=== PATIENT | female | born 1995 | race Caucasian/White ===

== ENCOUNTER 2019-07-19 07:08 | Outpatient (CLI) | payer OTHER, SELFPAY ==
[2019-07-19 10:14] VITALS: BP 146/79; PULSE 89; RESP 18; TEMP 36.5; O2SAT 98; BMI 32.5
[2019-07-19 10:20] VITALS: BP 149/79; PULSE 89; RESP 18; TEMP 36.5
== END 2019-07-19 07:09 | disposition home or self-care (01) ==
LOC: GILAB 07:16
PROVIDERS: Family Provider Nurse Practitioner Family; Visit Provider Family Medicine
DX: Z34.83 Encounter for supervision of other normal pregnancy, third trimester (principal); Z3A.28 28 weeks gestation of pregnancy; Z31.82 Encounter for Rh incompatibility status; Z67.91 Unspecified blood type, Rh negative
CPT/HCPCS: 86850; 86900; 90384; 96372

== ENCOUNTER → 2019-07-30 14:46 | Outpatient (BNVA) | payer OTHER, SELFPAY | PROVIDERS: Family Provider Nurse Practitioner Family; Visit Provider Internal Medicine Rheumatology | DX: M45.9 Ankylosing spondylitis of unspecified sites in spine (principal); G43.909 Migraine, unspecified, not intractable, without status migrainosus; F32.9 Major depressive disorder, single episode, unspecified | CPT/HCPCS: 99214 ==

== ENCOUNTER 2019-09-22 20:30 | Inpatient (IN) | payer OTHER, SELFPAY ==
[2019-09-22] VITALS (62 sets, daily range): BP systolic 0–171; BP diastolic 0–95; PULSE 81–229; RESP 18; TEMP 36.8–36.9; O2SAT 93–100; BMI 34.7
--- NOTE | 2019-09-22 19:17 | US_ITS ---
WS: [id number] ULTRASOUND OB LIMITED TECHNIQUE: Limited ultrasound examination of the fetus. CLINICAL INFORMATION: decreased movement COMPARISON: None. FINDINGS: Estimated gestational age 38 weeks 4 days Estimated delivery October 02, 2019 heart rate 136 bpm Biophysical profile 6 out of 8. flexion not visualized at this time. breathin movement: 2 tone: 0 Amniotic fluid: 2 IMPRESSION Biophysical profile 6 out of 8
[2019-09-22] MEDS: sodium chloride 0.9% 1,000 ML 999 ML IV (19:29)
[2019-09-22] MEDS: dextrose 5%-lactated ringers 1,000 ML 125 ML IV (21:01)
[2019-09-22 21:05] LABS: Basophils % 0.2 %; Eosinophils % 0.2 %; Hematocrit 32.7 % (37.0-47.0); Hemoglobin 10.8 g/dL (11.5-15.3); Lymphocytes # 1.2 10^3/uL (0.8-4.8); Lymphocytes % 9.7 %; Mean Corpuscular Hemoglobin 29.2 pg (28.0-34.0); Mean Corpuscular Volume 88.4 fL (81-99); Mean Platelet Volume 11.2 fL (7.4-10.4); Monocytes # 0.6 10^3/uL (0.2-0.9); Neutrophils # 10.6 10^3/uL (1.8-7.7); Nucleated Red Blood Cells % 0 %; Platelet Count 247 10^3/cmm (130-400); Red Cell Distribution Width 14.6 % (12.1-15.1); White Blood Count 12.6 10^3/uL (4.0-10.0)
[2019-09-22] MEDS: lactated ringers 1,000 ML 999 ML IV (21:31)
--- NOTE | 2019-09-22 22:27 | ANES.PREANE2 ---
Pre-Anesthetic Assessment Pre-Anesthetic Assessment: Height/Weight: Height 1.63 m Weight 91.626 kg Temp Pulse Resp BP Pulse Ox 98.2 F 98 18 146/69 99 09/22/19 18:31 09/22/19 22:24 09/22/19 18:31 09/22/19 22:24 09/22/19 22:26 Preop Diagnosis: IUP Proposed Procedure: Labor epidural Was Beta Terrell taken within 24 hours: N/A Social: Social History: No tobacco Exam: Pre-Anes Outpt Exam: alert, oriented x 3 and clear to auscultation bilaterally Airway: Submandibular: WNL Cervical ROM: WNL MP: 2 Pulmonary: Pulmonary: None reported CV/HEM: CV/HEM: HTN : : None reported Hepatic: Hepatic: None reported GI: GI: GERD Metabolic: Metabolic: None reported Musc/skel: Musc/skel: Lower Back Pain and Scoliosis Comments: ankylosing spondylitis Neuropsych: Neuropsych: Depression Anesthetic Plan: ASA status: 2 Anesthesia: Anesthesia Evaluation and Regional (specify below) Risk of > 500 ml blood loss (7ml/kg in children): No Meds/Allergies Current Medications: Current Medications Generic Name Dose Route Start Last Admin Trade Name Freq PRN Reason Stop Dose Admin Dextrose/Lactated Ringer's 1,000 mls @ 125 m ls/hr 09/22/19 21:00 09/22/19 21:01 Dextrose 5%-Lact ated Ringers IV 125 mls/hr .Q8H BERNARDINO Administration Lactated Ringer's 1,000 mls @ 999 m ls/hr 09/22/19 20:53 09/22/19 21:31 Lactated Ringers IV 999 mls/hr .Q1H1M PRN Administration BLEEDING PFSH Anesthesia PFSH: Medical History (Updated 07/09/19 @ 09:15 by Lady Jordan MD) Ankylosing spondylitis Social History (Updated 07/30/19 @ 15:03 by Sabina Morse LPN) Smoking and tobacco status: never smoked Alcohol intake: current Alcohol intake frequency: holidays/special occasions only Household members: spouse Marital status: Current occupational status: employed and student Current occupation: [employer] History of recent travel: No Female Reproductive History: : 1 Data Anesthesia CBC & Chem 7: 09/22/19 19:00 Other Labs: Laboratory Results - last 48 hr 09/22/19 19:00 WBC 12.6 H RBC 3.70 L Hgb 10.8 L Hct 32.7 L MCV 88.4 MCH 29.2 MCHC 33.0 RDW 14.6 Plt Count 247 MPV 11.2 H Neut % (Auto) 84.0 Lymph % (Auto) 9.7 [place] % (Auto) 5.0 Eos % (Auto) 0.2 Baso % (Auto) 0.2 Neut # (Auto) 10.6 H Lymph # (Auto) 1.2 [place] # (Auto) 0.6 Eos # (Auto) 0.0 Baso # (Auto) 0.0 Nucleated RBC % (auto) 0 Nucleated RBCs # 0.0 Cardiac Studies: No Data to Display Anesthesia Procedures Epidural: Time Out Performed: Yes Consents Signed: Procedure Consent and NPO Consent Consent: requested by attending/covering physician, from patient, risks and benefits reviewed and patient agrees to proceed Lumbar Level: L2-L3 Epidural position: sitting Epidural procedure: sterile prep of area, 1% lidocaine to numb the area (3 cc skin wheel), 18 g needle (L3-L4), negative for paresthesia passed, neg for paresthesia, test dose given (3 cc ), 1.5% xylocaine 1:200k epi, 0.2% Ropivacaine bolus ml (8 cc), placed PCEA, no systemic response, sterile dressing applied and 0.2% Ropiavacaine @ mls/hr (13 mls/hr 5 cc Q 10 min x 3)
[2019-09-23] VITALS (43 sets, daily range): BP systolic 0–178; BP diastolic 0–94; PULSE 75–138; RESP 16–18; TEMP 36.6–36.9; O2SAT 89–100
[2019-09-23] MEDS: oxytocin 30 UNIT/500 ML BAG 600 UNIT IV (01:40)
--- NOTE | 2019-09-23 02:12 | PM.DELIVERY ---
 Delivery Note: Date of delivery: September 23, 2019 Pre-Delivery Course: The patient is a 24-year-old 1 with gestational hypertension that has not met criteria for treatment at 38 weeks estimated gestational age who presented to the hospital complaining of not having movement for the last 10 to 12 hours. On her initial evaluation, she her heart tones were noted to be hyper reactive. No movement was noted. As result a biophysical profile was performed. She scored a 6 out of 8 but had marginal fluid, she had no breasts and only moved twice. As result, I elected to induce her. Especially in light of her gestational hypertension. She was already having consistent contractions. I performed an amniotomy. She then progressed to complete without difficulty. She did have an occasional decelerations. Delivery: DELIVERY: The patient progressed to complete without difficulty. As the patient was pushing, heart tones would go into the 60s and 70s with frequency. As result, I elected to use a vacuum to assist with the delivery of the infant. I use the vacuum which was a soft cup Kiwi, for 4-5 contractions. I did not have suction in between contractions. I did have 1 pop-off. She delivered a female with a weight of 7 pounds 12 ounces with Apgars of 5, 9. The baby was delivered from the JAYDEN position. The baby's mouth and nose were suctioned at the site of the perineum. The baby was then completely delivered and placed on the mother's abdomen. The cord was then clamped and cut. There was no nuchal cord. There was no meconium. The placenta and 3 vessel cord were delivered intact shortly thereafter. The perineum and vaginal vault were carefully examined. No lacerations were noted. Both the mother and the baby were in stable condition. A&P Assessment and plan (1) Vacuum-assisted vaginal delivery: The patient is doing well. I anticipate that she will have a routine stay. Status: Acute (2) 38 weeks gestation of : Status: Acute (3) Gestational hypertension: Status: Acute Coding Level of Care Code Acute Open Hearth Laborer for Chg Fwd Diagnoses Vacuum-assisted vaginal delivery Z37.9 38 weeks gestation of Z3A.38 Gestational hypertension O13.9
--- NOTE | 2019-09-23 04:52 | PC.NURSE ---
Ambulated to room
--- NOTE | 2019-09-23 04:53 | PC.NURSE ---
Ambulated to nursery to see baby
--- NOTE | 2019-09-23 04:54 | PC.NURSE ---
Back to room.
[2019-09-23] MEDS: HYDROcodone-acetaminophen 5-325 mg Tablet PO (05:18)
[2019-09-23] MEDS: benzocaine-menthol 78 gm Canister 1 SPRAY TOPICAL (05:19)
--- NOTE | 2019-09-23 08:08 | PC.NURSE ---
Patient and significant other in nursery at this time.
--- NOTE | 2019-09-23 08:23 | PC.NURSE ---
0800 Patient in nursery at this time.
[2019-09-23] MEDS: docusate sodium 100 mg Capsule PO ×2 (10:30→18:17)
[2019-09-23] MEDS: prenatal vitamin Capsule 1 CAP PO (10:30)
[2019-09-23 15:03] LABS: Hematocrit 31.3 % (37.0-47.0); Hemoglobin 10.2 g/dL (11.5-15.3); Mean Corpuscular HGB Conc 32.6 g/dL (30.0-36.0); Mean Corpuscular Hemoglobin 28.9 pg (28.0-34.0); Mean Corpuscular Volume 88.7 fL (81-99); Mean Platelet Volume 10.7 fL (7.4-10.4); Platelet Count 226 10^3/cmm (130-400); Red Blood Count 3.53 10^6/uL (4.1-5.3); Red Cell Distribution Width 14.8 % (12.1-15.1); White Blood Count 16.2 10^3/uL (4.0-10.0)
[2019-09-24 04:00] VITALS: BP 123/81; PULSE 90; RESP 16
[2019-09-24] MEDS: docusate sodium 100 mg Capsule PO ×2 (08:49→21:43)
[2019-09-24] MEDS: prenatal vitamin Capsule 1 CAP PO (08:49)
[2019-09-24 10:00] VITALS: BP 131/82; PULSE 76; RESP 18; TEMP 36.5
[2019-09-24 16:30] VITALS: BP 153/89; PULSE 74; RESP 18; TEMP 36.9
[2019-09-24 21:43] VITALS: BP 130/88; PULSE 72; RESP 16; TEMP 36.7
[2019-09-25 06:09] VITALS: BP 129/80; PULSE 81; RESP 16; TEMP 36.8
--- NOTE | 2019-09-25 07:04 | ANE.PACU2 ---
 Inpatient post-anesthesia follow up: Airway intact: Yes Vital signs: Temperature 98.2 F Pulse Rate 81 Respiratory Rate 16 Blood Pressure 129/80 Pulse Oximetry 97 Oxygen Delivery Me thod Room Air Oxygen Flow Rate Fraction of Inspir ed Oxygen Hydration adequate: Yes Nausea and vomiting: No Mental status: Baseline Additional Comments: no LE weaknes, no headaches, no difficulty urinating, no signs of infection at neuraxial site
--- NOTE | 2019-09-25 07:40 | P.PN_ITS ---
SAMPLE BODY BUILDER Subjective Subjective: Interval history: Date of service is September 23. The patient is day #1. She is doing well. Her bleeding has been within normal limits. She is breast-feeding well. Her pain is well controlled. There are no concerns. Labor: Station: +1 Amniotic Membrane Status: Leaking Monitor Mode: External Contraction Pattern: Regular Status: Category ll Vitals/I&O/Wt Last Vital Signs Temp 98.2 F 09/25/19 06:09 Pulse 81 09/25/19 06:09 Resp 16 09/25/19 06:09 BP 129/80 09/25/19 06:09 Pulse Ox 97 09/23/19 22:00 09/24/19 09/25/19 09/25/19 22:59 06:59 14:59 Intake Total 700 / 700 400 / 1100 Balance 700 / 700 400 / 1100 Physical Exam Narrative: EXAM NARRATIVE: The patient is alert. She appears comfortable. Her heart has a regular rate and rhythm with no murmurs appreciated. Lungs are clear to auscultation bilaterally. Her fundus is firm and below the umbilicus. Urinary Catheter Management^: Bonilla: Cath Placed During This Visit: yes Urinary Catheter Date of Insertion: 09/22/19 Urinary Catheter Time of Insertion: 22:30 Data : 09/23/19 14:35 A&P Assessment and plan (1) 38 weeks gestation of : The patient appears to be doing well. Anticipate she will be discharged home on the . Status: Acute (2) Vacuum-assisted vaginal delivery: Status: Acute Attestations Medical Necessity Statement*: Routine care Coding Level of Care Code Acute Tractor Expert for Chg Fwd Diagnoses 38 weeks gestation of Z3A.38 Vacuum-assisted vaginal delivery Z37.9
--- NOTE | 2019-09-25 07:49 | PM.OBGYDC ---
Discharge Providers BOAT OAR MAKER Date of Admission: 09/22/19 20:30 Date of Discharge: 09/25/19 Attending Provider at Admission: Isaiah Norris MD Attending Provider at Discharge: Isaiah Norris MD Primary Care Provider: Isaiah Norris MD Diagnoses at Discharge Discharge Diagnosis (1) 38 weeks gestation of : Status: Acute (2) Vacuum-assisted vaginal delivery: Status: Acute Reason for Visit Reason for Visit: Reason For Visit: lack of movement Hospital Course Hospital Course: The patient presented to the hospital in active labor. Please see the delivery note for details about the hospital stay prior to delivery. , the patient had an unremarkable hospital stay. Her bleeding was within normal limits. Her pain was well controlled. She breast-fed well. There were no complications. Information Peripartum Data: Infant Delivery Method: Vaginal Physical Exam Narrative: EXAM NARRATIVE: The patient is alert. She appears comfortable. Her heart has a regular rate and rhythm with no murmurs appreciated. Lungs are clear to auscultation bilaterally. Her fundus is firm and below the umbilicus. Urinary Catheter Management^: Bonilla: Cath Placed During This Visit: yes Urinary Catheter Date of Insertion: 09/22/19 Urinary Catheter Time of Insertion: 22:30 Discharge Data Data Completed and Pending: Completed Studies During Hospitalization Category Date Time Status US OB biophysical profile without N ST [US OB BP P Ultrasound 09/22/19 19:17 Completed wo NST 41477] Sta t Vitals: Last Vital Signs Temp 98.2 F 09/25/19 06:09 Pulse 81 09/25/19 06:09 Resp 16 09/25/19 06:09 BP 129/80 09/25/19 06:09 Pulse Ox 97 09/23/19 22:00 Discharge Plan Discharge Patient Disposition: Home, Self-Care Condition: Stable Prescriptions: New ibuprofen 800 mg Tablet 800 mg PO TID Qty: 45 RF: 0 Continued Vitamin 27 mg iron- 0.8 mg Tablet 1 tab PO DAILY RF: 0 Discontinued potassium chloride 10 mEq Tablet Extended Release 10 meq PO BID RF: 0 promethazine 25 mg Tablet 25 mg PO Q6H PRN (Reason: Nausea) RF: 0 Discharge Orders: Discharge Order (Routine); Ordered 09/25/19 Ordered By: Isaiah Norris Referrals: Isaiah Norris MD [Primary Care Provider] - 6 Weeks Discharge Diet: Advance as tolerated Discharge Activity: Resume usual activity Discharge Attestations BOAT OAR MAKER Time Spent in Discharge Care*: less than 30 min Coding Level of Care Code Acute Graphics Specialist for Chg Fwd Diagnoses 38 weeks gestation of Z3A.38 Vacuum-assisted vaginal delivery Z37.9
[2019-09-25] MEDS: docusate sodium 100 mg Capsule PO (09:06)
[2019-09-25] MEDS: prenatal vitamin Capsule 1 CAP PO (09:07)
[2019-09-25 10:34] VITALS: BP 139/86; PULSE 82; RESP 16; TEMP 36.6; O2SAT 98
[2019-09-25 11:15] VITALS: BP 139/86; PULSE 82; RESP 16; TEMP 36.6; O2SAT 98
== END 2019-09-25 11:15 | disposition home or self-care (01) | DRG 807 ==
LOC: OPOB 20:36
PROVIDERS: Admitting Provider Family Medicine; Family Provider Nurse Practitioner Family; PCP Family Medicine; Visit Provider Family Medicine
DX: O99.344 Other mental disorders complicating childbirth (principal); Z37.0 Single live birth; O76 Abnormality in fetal heart rate and rhythm complicating labor and delivery; O13.4 Gestational [pregnancy-induced] hypertension without significant proteinuria, complicating childbirth; F32.9 Major depressive disorder, single episode, unspecified; F41.9 Anxiety disorder, unspecified; Z3A.38 38 weeks gestation of pregnancy
CPT/HCPCS: 12345; 36415; 51702; 59025; 59409; 76819; 85025; 85027; 96374; 99211; J2795; J3010; J7030

== ENCOUNTER → 2019-11-19 15:31 | Outpatient (BNVA) | payer OTHER, SELFPAY | PROVIDERS: Family Provider Nurse Practitioner Family; PCP Family Medicine; Visit Provider Internal Medicine Rheumatology | DX: M47.899 Other spondylosis, site unspecified (principal); Z79.899 Other long term (current) drug therapy; F32.9 Major depressive disorder, single episode, unspecified; G43.909 Migraine, unspecified, not intractable, without status migrainosus | CPT/HCPCS: 99214 ==

== ENCOUNTER → 2020-06-24 14:06 | Outpatient (BNVA) | payer OTHER, SELFPAY | PROVIDERS: Family Provider Nurse Practitioner Family; PCP Family Medicine; Visit Provider Internal Medicine Rheumatology | DX: M45.9 Ankylosing spondylitis of unspecified sites in spine (principal); M47.899 Other spondylosis, site unspecified; Z79.899 Other long term (current) drug therapy | CPT/HCPCS: 99214 ==

== ENCOUNTER → 2020-10-26 12:54 | Outpatient (BNVA) | payer OTHER, SELFPAY | PROVIDERS: Family Provider Nurse Practitioner Family; PCP Family Medicine; Visit Provider Internal Medicine Rheumatology | DX: M45.9 Ankylosing spondylitis of unspecified sites in spine (principal); M47.899 Other spondylosis, site unspecified; Z79.899 Other long term (current) drug therapy | CPT/HCPCS: 99214 ==

== ENCOUNTER → 2021-04-05 13:54 | Outpatient (BNVA) | payer OTHER, SELFPAY | PROVIDERS: Family Provider Nurse Practitioner Family; PCP Family Medicine; Visit Provider Internal Medicine Rheumatology | DX: M45.9 Ankylosing spondylitis of unspecified sites in spine (principal); M47.899 Other spondylosis, site unspecified; Z79.899 Other long term (current) drug therapy; G43.009 Migraine without aura, not intractable, without status migrainosus; F32.A Depression, unspecified; Z71.89 Other specified counseling | CPT/HCPCS: 99214 ==

== ENCOUNTER 2022-05-14 07:32 | Emergency (ER) | payer OTHER, SELFPAY ==
[2022-05-14 07:40] VITALS: BP 135/82; PULSE 91; RESP 16; TEMP 36.8; O2SAT 98; BMI 31.2
--- NOTE | 2022-05-14 08:16 | USR_ITS ---
PROCEDURE INFORMATION: Exam: US First Trimester, Transabdominal and US , Transvaginal Exam date and time: 05/14/2022 8:38 AM Age: 27 years old Clinical indication: complicated by abdominal or pelvic pain; Lower; First trimester (<14 weeks 0 days); Gestational age or lmp: 13w5d; ; Additional info: Abdominal pain in LABS AND CLINICAL REPORTS: Last menstrual period start date: 02/07/2022 Gestational age (Established): 13 w 5 d Estimated due date (Established): 11/14/2022 TECHNIQUE: Imaging protocol: Real-time transabdominal obstetrical ultrasound of the maternal pelvis and a first trimester , less than 14 weeks 0 days, with image documentation. Transvaginal imaging was used for better evaluation of the fetus, adnexa, and/or cervix. COMPARISON: US OB BPP wo NST 14135 09/22/2019 8:01 PM FINDINGS: Gestation: Intrauterine gestation is visualized. pole is visualized. Embryonic/ heart rate: 144 bpm BIOMETRY: Gestational age (AUA): 14 w 0 d. Abdominal circumference of 7.44 cm corresponding to an estimated gestational age of 14 weeks and 0 days. Estimated due date (AUA): 11/12/2022 Biparietal diameter (BPD): Biparietal diameter of 2.49 cm corresponding to an estimated gestational age of 14 weeks and 2 days. Head circumference of 9.23 cm corresponding to an estimated gestational age of 14 weeks and 1 day. Femur length (FL): Femur length 1.2 cm corresponding to an estimated gestational age of 13 weeks and 4 days. US/US OB <= 14 weeks fetus [id number] IMPRESSION: Normal intrauterine gestation with an estimated gestational age of 14 weeks and 0 days and heart rate of 144 bpm.
--- NOTE | 2022-05-14 08:25 | ED_ITS ---
HPI - Nausea/Vomiting/Diarrhea General: Chief complaint: Nausea/Vomiting/Diarrhea Stated complaint: 14 weeks , can't keep anything down Time Seen by Provider: 05/14/22 08:03 History of Present Illness: 27-year-old female who is approximate 14 weeks per dates presents emergency department chief complaint of a 3-day history of productive cough followed by nausea and vomiting and generalized abdominal discomfort patient reports other sick ill contacts reports low-grade fever at home reports he is unable to hold anything down at this time despite being provided medications for it by her labor relations or personnel negotiator. Patient reports generalized malaise and fatigue with reduced appetite and oral intake reports generalized abdominal discomfort reports no vaginal bleeding or discharge patient reports no back pain or flank pain patient presents to the ER with her for further assessment and management. Associated nausea: Yes Associated symtoms: Reports fatigue, malaise and nausea; Denies anxiety, change in vision, chest pain, headache(s) or palpitations Review of Systems General: Reports: 10 or more systems reviewed and unremarkable except in HPI and below Const: Reports: fever(s), chills, body aches, change in appetite, fatigue and malaise Eyes: Denies: change in vision or blurry vision Card: Denies: chest pain or palpitations Resp: Denies: dyspnea or productive cough GI: Reports: abdominal pain, nausea and vomiting : Denies: flank pain Musc: Denies: extremity pain or extremity swelling Skin/Breast: Denies: rash or pruritus Neuro: Denies: headache(s) Psych: Denies: anxiety or depression Loki/Lymph: Denies: easy bleeding All/Imm: Denies: urticaria, throat swelling or facial swelling PFSH ED PFSH: Medical History Ankylosing spondylitis Breast feeding status of mother High risk medication use 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 Immunization counseling Surgical History H/O breast augmentation 2016 [place] teeth removed Family History Other Hypertension Stroke Denies family history of Rheumatoid arthritis Diabetes Lupus Cancer Social History Smoking and tobacco status: never smoked Alcohol intake: current Alcohol intake frequency: holidays/special occasions only Household members: spouse Marital status: Current occupational status: employed and student Current occupation: [employer] History of recent travel: No Female Reproductive History: Date of last menstrual period: 11/28/18 Physical Exam Const: COMMON NORMALS: no acute distress, patient oriented x3 and healthy appearing OTHER: Patient has a flat affect on exam appears mildly dehydrated but no and no obvious acute distress HENMT: COMMON NORMALS: normocephalic and atraumatic HEAD & SCALP: normocephalic and atraumatic Eye: COMMON NORMALS: Equal, round and reactive pupils present and EOMs intact bilaterally PUPIL: Yes Equal, round and reactive pupils present Neck/C-Spine: COMMON NORMALS: full ROM, supple and no JVD Lymph: LYMPHATIC: no lymphadenopathy noted Chest: COMMONS NORMALS: normal inspection of the chest and normal palpation of entire chest wall Resp: COMMON NORMALS: normal respiratory effort, No retractions and clear to auscultation bilaterally EFFORT & INSPECTION: Yes able to speak in complete sentences and Yes symmetric chest movement AUSCULTATION: clear to auscultation bilaterally Cardio: COMMON NORMALS: no JVD, regular rate and regular rhythm RATE: regular rate RHYTHM: regular rhythm GI: COMMON NORMALS: Normal to inspection, nondistended, normoactive bowel sounds present and Soft to palpation INSPECTION: Yes normal to inspection PALPATION: Yes Soft to palpation OTHER: Abdomen is soft currently nontender generalized distention secondary to . No guarding or rebound noted. : COMMON NORMALS: Yes no CVA tenderness BLADDER/KIDNEY EXAM: Yes no CVA tenderness Back/Pelvis: COMMON NORMALS: no CVA tenderness Extremity: COMMON NORMALS: normal to inspection and full ROM Neuro: COMMON NORMALS: patient oriented x3, CN's II-XII intact bilaterally, moves all extremities and no focal motor deficits Psych: COMMON NORMALS: mental status grossly normal, Normal thought process present, cooperative and normal affect THOUGHT PROCESS: Normal thought process present Skin: COMMON NORMALS: no rashes or lesions noted GENERAL SKIN EXAM: no rashes or lesions noted Course Vital Signs: Vital signs: Vital Signs Temperature 98.3 F 05/14/22 07:40 Pulse Rate 91 05/14/22 07:40 Respiratory Rate 16 05/14/22 07:40 Blood Pressure 135/82 05/14/22 07:40 Pulse Oximetry 98 05/14/22 07:40 Oxygen Delivery Me thod 05/14/22 07:40 MDM - Nausea/Vomiting/Diarrhea Medical Decision Making Due to the patient's symptoms and condition IV established IV fluids provided for hydration lab work and imaging will be obtained we will continue to follow. Patient feels much improved in regards to after being provided fluids no additional nausea or vomiting at this time patient's OB ultrasound revealed IUP at 13 weeks with good heartbeat no complications or issues noted patient was found to have a questionable urinary tract infection noted on her urinalysis otherwise unremarkable at this time it has been over the patient passing darnell ccessful oral fluid challenge patient was simply discharged home advised for the follow-up with her obturation next 3 to 5 days which patient was advised to return the interim if any of her symptoms persist or worse. Lab Data 05/14/22 08:25 05/14/22 08:25 Radiology Impressions Ultrasound 05/14/22 08:16 IMPRESSION: Normal intrauterine gestation with an estimated gestational age of 14 weeks and 0 days and heart rate of 144 bpm. Laboratory Results WBC 10.1 10^3/uL (4.0-10.0) H 05/14/22 08:25 RBC 4.87 10^6/uL (4.1-5.3) 05/14/22 08:25 Hgb 13.8 g/dL (11.5-15.3) 05/14/22 08:25 Hct 41.4 % (37.0-47.0) 05/14/22 08:25 MCV 85.0 fl (81-99) 05/14/22 08:25 MCH 28.3 pg (28.0-34.0) 05/14/22 08:25 MCHC 33.3 g/dL (30.0-36.0) 05/14/22 08:25 RDW 13.0 % (12.1-15.1) 05/14/22 08:25 Plt Count 284 10^3/cmm (130-400) 05/14/22 08:25 MPV 10.6 fL (7.4-10.4) H 05/14/22 08:25 Neut % (Auto) 79.7 % 05/14/22 08:25 Lymph % (Auto) 14.0 % 05/14/22 08:25 [place] % (Auto) 4.7 % 05/14/22 08:25 Eos % (Auto) 0.7 % 05/14/22 08:25 Baso % (Auto) 0.3 % 05/14/22 08:25 Neut # (Auto) 8.04 10^3/uL (1.8-7.7) H 05/14/22 08:25 Lymph # (Auto) 1.4 10^3/uL (0.8-4.8) 05/14/22 08:25 [place] # (Auto) 0.5 10^3/uL (0.2-0.9) 05/14/22 08:25 Eos # (Auto) 0.1 10^3/uL (0.0-0.8) 05/14/22 08:25 Baso # (Auto) 0.0 10^3/uL (0.0-0.1) 05/14/22 08:25 Nucleated RBC % (auto) 0 % 05/14/22 08:25 Nucleated RBCs # 0.0 /100WBC 05/14/22 08:25 Sodium 138 mmol/L (136-145) 05/14/22 08:25 Potassium 3.5 mmol/L (3.5-5.1) 05/14/22 08:25 Chloride 101 mmol/L (98-107) 05/14/22 08:25 Carbon Dioxide 24 mmol/L (22-29) 05/14/22 08:25 Anion Gap 16.5 (5-19) 05/14/22 08:25 BUN 9 mg/dL (6-20) 05/14/22 08:25 Creatinine 0.5 mg/dL (0.5-0.9) 05/14/22 08:25 GFR Calculation 145.9 mL/min (90-130) H 05/14/22 08:25 Glucose 80 mg/dL (65-115) 05/14/22 08:25 Calculated Osmolality 284 mOsm/kg (285-295) L 05/14/22 08:25 Calcium 9.4 mg/dL (8.5-10.5) 05/14/22 08:25 Total Bilirubin 0.3 mg/dL (0.15-1.2) 05/14/22 08:25 AST 10 U/L (0-32) 05/14/22 08:25 ALT 8 U/L (0-33) 05/14/22 08:25 Alkaline Phosphatase 62 U/L (35-105) 05/14/22 08:25 C-Reactive Protein 51.3 mg/L (0.0-4.9) H 05/14/22 08:25 Total Protein 7.4 g/dL (6.6-8.7) 05/14/22 08:25 Albumin 4.0 g/dL (3.5-5.2) 05/14/22 08:25 Globulin 3.4 g/dL (1.3-4.6) 05/14/22 08:25 Ser , Semi-Qnt 77746.00 mIU/mL 05/14/22 08:25 Urine Color Dark yellow (Yellow) 05/14/22 09:35 Urine Appearance Hazy (CLEAR) A 05/14/22 09:35 Urine pH 7 (5-7) 05/14/22 09:35 Ur Specific [place] 1.020 (1.005-1.030) 05/14/22 09:35 Urine Protein Neg (Negative) 05/14/22 09:35 Urine Glucose (UA) Norm (Normal) 05/14/22 09:35 Urine Ketones 3+ (Negative) H 05/14/22 09:35 Urine Blood 2+ (Negative) H 05/14/22 09:35 Urine Nitrate Negative (Negative) 05/14/22 09:35 Urine Bilirubin Neg (Negative) 05/14/22 09:35 Urine Urobilinogen 1 mg/dL (Negative) H 05/14/22 09:35 Ur Leukocyte Esterase 1+ (Negative) H 05/14/22 09:35 Urine RBC 0-4 /hpf (0-2) H 05/14/22 09:35 Urine WBC 5-10 /hpf (0-5) H 05/14/22 09:35 Ur Squamous Epith Cells 15-25 /hpf (0-5) H 05/14/22 09:35 Amorphous Sediment 1+ /hpf 05/14/22 09:35 Urine Bacteria 1+ /hpf (NONE) H 05/14/22 09:35 Influenza Type A Ag negative (Negative) 05/14/22 08:47 Influenza Type B Ag negative (Negative) 05/14/22 08:47 Discharge Plan Discharge Patient Disposition: Home Clinical Impression: Urinary tract infection, Vomiting Condition: Stable Prescriptions: New Macrobid 100 mg capsule 100 mg PO BID 7 Days Qty: 14 0RF Rx Instructions: must administer with a meal/food ondansetron HCl 4 mg tablet 4 mg PO Q8H PRN (Reason: nausea and vomiting) Qty: 20 0RF promethazine 25 mg suppository 25 mg NC Q6H PRN (Reason: severe vomiting) Qty: 12 0RF No Action diclofenac sodium 1 % gel 4 g topical QID Qty: 100 2RF Rx Instructions: apply to affected area as needed prednisone 10 mg tablet See Rx Instructions PO DAILY PRN (Reason: joint pain) Qty: 30 1RF Rx Instructions: take 1 tab daily for 5-7 days prn joint pain flare PO daily PRN; cyclobenzaprine 10 mg tablet 10 mg PO Q8H PRN (Reason: muscle spasm) Qty: 30 1RF Simponi 50 mg/0.5 mL pen injector See Rx Instructions .ROUTE .COMPLEX Qty: 0.5 0RF Dose Instruction: INJECT 50 MG (0.5 ML) UNDER THE SKIN MONTHLY Rx Instructions: INJECT 50 MG (0.5 ML) UNDER THE SKIN MONTHLY Discharge Orders: Discharge ED (Routine); Ordered 05/14/22 Ordered By: Walter Mooney Referrals: Isaiah Norris MD [Primary Care Provider] - 4-7 days Discharge Diet: Advance as tolerated Discharge Activity: Increase activity as tolerated Patient Instructions: Nausea and Vomiting in (ED), Urinary Tract Infection in (ED) Activity Restrictions/Additional Instructions: Please follow-up with your primary care doctor in 3 to 5 days, take medication as prescribed and please return the interim if any of your symptoms persist or worse. Coding Level of Care Code ED Circulation Librarian for [place] Fwd Exam Comprehensive
[2022-05-14 08:36] LABS: Basophils % 0.3 %; Eosinophils # 0.1 10^3/uL (0.0-0.8); Eosinophils % 0.7 %; Hematocrit 41.4 % (37.0-47.0); Hemoglobin 13.8 g/dL (11.5-15.3); Lymphocytes # 1.4 10^3/uL (0.8-4.8); Mean Corpuscular HGB Conc 33.3 g/dL (30.0-36.0); Mean Corpuscular Hemoglobin 28.3 pg (28.0-34.0); Mean Platelet Volume 10.6 fL (7.4-10.4); Monocytes # 0.5 10^3/uL (0.2-0.9); Monocytes % 4.7 %; Neutrophils # 8.04 10^3/uL (1.8-7.7); Neutrophils % 79.7 %; Nucleated Red Blood Cells % 0 %; Platelet Count 284 10^3/cmm (130-400); Red Blood Count 4.87 10^6/uL (4.1-5.3); White Blood Count 10.1 10^3/uL (4.0-10.0)
[2022-05-14] MEDS: ondansetron 2 mg/ML SDV 2 mL 8 MG IVP (08:44)
[2022-05-14] MEDS: famotidine 20 mg/2 mL INJ 40 MG IVP (08:44)
[2022-05-14] MEDS: diphenhydrAMINE 50 mg/mL SDV 1mL 12.5 MG IVP (08:45)
[2022-05-14] MEDS: sodium chloride 0.9% 1,000 ML 999 ML IV ×2 (08:46→10:44)
[2022-05-14 09:09] LABS: Alanine Aminotransferase 8 U/L (0-33); Alkaline Phosphatase 62 U/L (35-105); Anion Gap 16.5 (5-19); Aspartate Amino Transferase 10 U/L (0-32); Blood Urea Nitrogen 9 mg/dL (6-20); C Reactive Protein 51.3 mg/L (0.0-4.9); Calcium 9.4 mg/dL (8.5-10.5); Carbon Dioxide 24 mmol/L (22-29); Chloride 101 mmol/L (98-107); Globulin 3.4 g/dL (1.3-4.6); Glomerular Filtration Rate 145.9 mL/min (90-130); Glucose 80 mg/dL (65-115); Osmolality Calculated 284 mOsm/kg (285-295); Potassium 3.5 mmol/L (3.5-5.1); Sodium 138 mmol/L (136-145); Total Bilirubin 0.3 mg/dL (0.15-1.2); Total Protein 7.4 g/dL (6.6-8.7)
[2022-05-14 09:10] LABS: Influenza A by IFA negative (Negative); Influenza B by IFA negative (Negative)
[2022-05-14 09:52] LABS: Add Urine Microscopic? YES; Bilirubin Urine Neg (Negative); Blood Urine 2+ (Negative); Glucose Urine UA Norm (Normal); Ketones Urine 3+ (Negative); Leukocyte Esterase Urine 1+ (Negative); Nitrate Urine Negative (Negative); Protein Urine Neg (Negative); Urine Appearance Hazy (CLEAR); Urine Color Dark Yellow (Yellow); Urobilinogen Urine 1 mg/dL (Negative); pH Urine 7 (5-7)
[2022-05-14 09:53] LABS: Add Urine Culture? No; Amorphous Sediment Urine 1+ /hpf; Bacteria Urine 1+ /hpf; RBC Urine 0-4 /hpf (0-2); Squamous Epithelial Cell Urine 15-25 /hpf (0-5)
== END 2022-05-14 12:10 | disposition home or self-care (01) ==
PROVIDERS: Emergency Provider Emergency Medicine; PCP Family Medicine
DX: N39.0 Urinary tract infection, site not specified (principal); R11.11 Vomiting without nausea
CPT/HCPCS: 76801; 80053; 81001; 84702; 85025; 86140; 87804; 96361; 96374; 96375; 99285; J1200; J2405; J3490; J7030

== ENCOUNTER 2022-06-03 09:01 | Outpatient (CLI) | payer OTHER, SELFPAY ==
--- NOTE | 2022-06-03 09:12 | XR_ITS ---
WS: [id number] views of the left first finger, 06/03/2022 Clinical Data: PAIN Comparison: None. Findings: No fractures or dislocations are seen. The soft tissues are normal. The joint spaces are not remarkab le. XR/XR finger LT min 2V [id number] Impression: Negative left thumb.
== END 2022-06-03 09:02 | disposition home or self-care (01) ==
PROVIDERS: PCP Family Medicine; Visit Provider Family Medicine
DX: S69.92XA Unspecified injury of left wrist, hand and finger(s), initial encounter (principal); X58.XXXA Exposure to other specified factors, initial encounter
CPT/HCPCS: 73140

== ENCOUNTER 2022-06-29 07:10 | Outpatient (CLI) | payer OTHER, SELFPAY ==
--- NOTE | 2022-06-29 | US_ITS ---
WS: [id number] OBSTETRICAL ULTRASOUND COMPLETE HISTORY: ANATOMY SCAN COMPARISON: 05/14/2022 Single intrauterine gestation in breech presentation. Cervix is Closed and normal length. Cervical length is 4.1 cm. Normal amount of amniotic fluid surrounds the fetus. Placenta: Posterior, no previa or abruption. Placenta grade 0 Heart: 138 BPM. Four chambers are identified. RIGHT and LEFT outflow tracts are unremarkable. Anatomy: Intracranial structures and spine are normal. kidneys, stomach and urinary bladd er are unremarkable. Abdominal wall, three-vessel cord and cord insertion site are normal. 4 extremities are present. profile: Unremarkable. Gender: Male. measurements: BPD = 4.8 cm = 20w3d HC = 18.2 cm = 20w4d AC = 15.2 cm = 20w3d FL = 3.4 cm = 20w4d EFW: 357 g. Biometry is internally concordant. AGA by ultrasound: 20w4d REGAN by ultrasound: 11/12/2022 US/US OB >= 14 weeks fetus [id number] IMPRESSION: 1. Single intrauterine gestation of 20w4d with an REGAN of 11/12/2022. Appropria te growth since the prior ultrasound. 2. Unremarkable screening survey of anatomy.
== END 2022-06-29 07:11 | disposition home or self-care (01) ==
LOC: RAD 07:11
PROVIDERS: PCP Family Medicine; Visit Provider Family Medicine
DX: Z34.82 Encounter for supervision of other normal pregnancy, second trimester (principal)
CPT/HCPCS: 76805

== ENCOUNTER 2022-08-16 19:44 | Emergency (ER) | payer OTHER, SELFPAY ==
[2022-08-16 19:46] VITALS: BP 141/88; PULSE 106; RESP 16; TEMP 37.1; O2SAT 97
--- NOTE | 2022-08-16 20:19 | ED_ITS ---
HPI - Nausea/Vomiting/Diarrhea General: Chief complaint: Nausea/Vomiting/Diarrhea Stated complaint: n/v Time Seen by Provider: 08/16/22 20:19 History of Present Illness: Ms. Ayala is a 27-year-old presenting with nausea, vomiting, diarrhea for 2 days in the context of . She is approximately 27 weeks without known complications during this . She reports history of morning sickness with however has been doing well lately. Onset of symptoms was subacute 2 days ago. Numerous episodes of nonbilious and nonbloody emesis as well as watery diarrhea. Generalized mild abdominal cramping. She has not noticed increased vaginal discharge though no vaginal bleeding. She has not been able to tolerate even liquids and symptoms are exacerbated by attempts at p.o. intake. No other specific changes in health, exacerbating, or alleviating factors identified. 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 Physical Exam Const: COMMON NORMALS: alert GENERAL APPEARANCE: cooperative and well developed HENMT: COMMON NORMALS: normocephalic and atraumatic HEAD & SCALP: normocephalic and atraumatic Eye: COMMON NORMALS: conjunctivae normal CONJUNCTIVA: Yes conjunctivae normal SCLERA: sclerae normal Neck/C-Spine: COMMON NORMALS: supple GENERAL: Yes trachea midline Resp: COMMON NORMALS: clear to auscultation bilaterally EFFORT & INSPECTION: Yes able to speak in complete sentences AUSCULTATION: clear to auscultation bilaterally Cardio: COMMON NORMALS: regular rhythm RATE: tachycardic RHYTHM: regular rhythm GI: COMMON NORMALS: Soft to palpation PALPATION: Yes Soft to palpation and No Tenderness to palpation present (GI) OTHER: Gravid Extremity: GENERAL: Yes normal exam except as noted and No edema Neuro: COMMON NORMALS: moves all extremities SENSORIUM/ORIENTATION: Yes alert and No Orientation impaired Psych: COMMON NORMALS: mental status grossly normal and Normal thought process present THOUGHT PROCESS: Normal thought process present Course Vital Signs: Vital signs: Vital Signs Temperature 98.7 F 08/16/22 19:46 Pulse Rate 103 H 08/16/22 23:22 Respiratory Rate 16 08/16/22 23:22 Blood Pressure 109/68 08/16/22 23:22 Pulse Oximetry 98 08/16/22 23:22 Oxygen Delivery Me thod 08/16/22 21:12 MDM - Nausea/Vomiting/Diarrhea Medical Decision Making 27-year-old lady G3, P1 approximately 27 weeks without known current complications presenting for nausea, vomiting, diarrhea. Abdominal exam is benign. Patient mildly tachycardic however nontoxic in appearance. Denies respiratory symptoms. Labs notable for mild leukocytosis, normal hemoglobin and platelet count. Metabolic panel with evidence of dehydration and hypokalemia. Urinalysis with 2+ bacteria, there is squamous epithelial contamination however given I believe that this is appropriate for treatment. Wet prep negative. [id number] ultrasound limited performed with positive movements and FHR 153. Patient treated with IV fluids and antiemetic with mild to moderate improvement. Additional fluids and additional antiemetic ordered as well as potassium supplementation. Patient improved and able to tolerate p.o. intake. Most likely etiology of patient's symptoms is nonspecific nausea, vomiting, diarrhea in the context of . The results of ED evaluation were discussed with the patient including prescriptions and/or symptomatic cares (if applicable) including appropriate and responsible use, followup plan, and return precautions. The patient verbalized understanding and felt safe for discharge. Medical Records I reviewed the patient's medical records. Lab Data I reviewed the patient's lab results. 08/16/22 20:53 08/16/22 20:53 Laboratory Results WBC 12.3 10^3/uL (4.0-10.0) H 08/16/22 20:53 RBC 4.33 10^6/uL (4.1-5.3) 08/16/22 20:53 Hgb 12.2 g/dL (11.5-15.3) 08/16/22 20:53 Hct 37.5 % (37.0-47.0) 08/16/22 20:53 MCV 86.6 fl (81-99) 08/16/22 20:53 MCH 28.2 pg (28.0-34.0) 08/16/22 20: MCHC 32.5 g/dL (30.0-36.0) 08/16/22 20:53 RDW 13.6 % (12.1-15.1) 08/16/22 20:53 Plt Count 254 10^3/cmm (130-400) 08/16/22 20:53 MPV 10.3 fL (7.4-10.4) 08/16/22 20:53 Neut % (Auto) 88.7 % 08/16/22 20:53 Lymph % (Auto) 6.8 % 08/16/22 20:53 [place] % (Auto) 2.4 % 08/16/22 20:53 Eos % (Auto) 0.1 % 08/16/22: Baso % (Auto) 0.2 % 08/16/22:53 Neut # (Auto) 10.89 10^3/uL (1.8-7.7) H 08/16/22 20:53 Lymph # (Auto) 0.8 10^3/uL (0.8-4.8) 08/16/22 20:53 [place] # (Auto) 0.3 10^3/uL (0.2-0.9) 08/16/22 20:53 Eos # (Auto) 0.0 10^3/uL (0.0-0.8) 08/16/22 20:53 Baso # (Auto) 0.0 10^3/uL (0.0-0.1) 08/16/22 20:53 Nucleated RBC % (auto) 0 % 08/16/22 20:53 Nucleated RBCs # 0.0 /100WBC 08/16/22 20:53 Sodium 141 mmol/L (136-145) 08/16/22 20:53 Potassium 3.1 mmol/L (3.5-5.1) L 08/16/22 20:53 Chloride 102 mmol/L (98-107) 08/16/22 20:53 Carbon Dioxide 22 mmol/L (22-29) 08/16/22 20:53 Anion Gap 20.1 (5-19) H 08/16/22 20:53 BUN 8 mg/dL (6-20) 08/16/22 20:53 Creatinine 0.5 mg/dL (0.5-0.9) 08/16/22 20:53 GFR Calculation 145.9 mL/min (90-130) H 08/16/22 20:53 Glucose 93 mg/dL (65-115) 08/16/22 20:53 Calculated Osmolality 290 mOsm/kg (285-295) 08/16/22 20:53 Calcium 8.8 mg/dL (8.5-10.5) 08/16/22 20:53 Total Bilirubin 0.3 mg/dL (0.15-1.2) 08/16/22 20:53 AST 12 U/L (0-32) 08/16/22 20:53 ALT 8 U/L (0-33) 08/16/22 20:53 Alkaline Phosphatase 103 U/L (35-105) 08/16/22 20:53 Total Protein 6.7 g/dL (6.6-8.7) 08/16/22 20:53 Albumin 3.5 g/dL (3.5-5.2) 08/16/22 20:53 Globulin 3.2 g/dL (1.3-4.6) 08/16/22 20:53 Urine Color Yellow (Yellow) 08/16/22 20:58 Urine Appearance Clear (CLEAR) 08/16/22 20:58 Urine pH 6 (5-7) 08/16/22 20:58 Ur Specific [place] 1.020 (1.005-1.030) 08/16/22 20:58 Urine Protein Neg (Negative) 08/16/22 20:58 Urine Glucose (UA) Norm (Normal) 08/16/22 20:58 Urine Ketones 3+ (Negative) H 08/16/22 20:58 Urine Blood Trace (Negative) H 08/16/22 20:58 Urine Nitrate Negative (Negative) 08/16/22 20:58 Urine Bilirubin Neg (Negative) 08/16/22 20:58 Urine Urobilinogen Norm mg/dL (Negative) 08/16/22 20:58 Ur Leukocyte Esterase Negative (Negative) 08/16/22 20:58 Urine RBC 0-4 /hpf (0-2) H 08/16/22 20:58 Urine WBC 5-10 /hpf (0-5) H 08/16/22 20:58 Ur Squamous Epith Cells 5-10 /hpf (0-5) H 08/16/22 20:58 Amorphous Sediment Not Reportable 08/16/22 20:58 Urine Bacteria 2+ /hpf (NONE) H 08/16/22 20:58 Discharge Plan Discharge Patient Disposition: Home Clinical Impression: Dehydration, Nausea, vomiting, and diarrhea, Condition: Stable Prescriptions: New Reglan 10 mg tablet 10 mg PO Q6H PRN (Reason: nausea and vomiting) Qty: 30 0RF nitrofurantoin macrocrystal 100 mg capsule 100 mg PO Q12H 7 Days Qty: 14 0RF Rx Instructions: must administer with a meal/food No Action diclofenac sodium 1 % gel 4 g topical QID Qty: 100 2RF Rx Instructions: apply to affected area as needed prednisone 10 mg tablet See Rx Instructions PO DAILY PRN (Reason: joint pain) Qty: 30 1RF Rx Instructions: take 1 tab daily for 5-7 days prn joint pain flare PO daily PRN; Simponi 50 mg/0.5 mL pen injector See Rx Instructions .ROUTE .COMPLEX Qty: 0.5 3RF Dose Instruction: INJECT 50 MG (0.5 ML) UNDER THE SKIN MONTHLY Rx Instructions: INJECT 50 MG (0.5 ML) UNDER THE SKIN MONTHLY ondansetron HCl 4 mg tablet 4 mg PO Q8H PRN (Reason: nausea and vomiting) Qty: 20 0RF promethazine 25 mg suppository 25 mg CO Q6H PRN (Reason: severe vomiting) Qty: 12 0RF Discharge Orders: Discharge ED (Routine); Ordered 08/16/22 Ordered By: Tristen Boateng Referrals: Isaiah Norris MD [Primary Care Provider] - Discharge Diet: Advance as tolerated and Clear Liquid Discharge Activity: Increase activity as tolerated Patient Instructions: Nausea and Vomiting in (ED), Dehydration (ED), Abdominal Pain in (ED) Activity Restrictions/Additional Instructions: Thank you for visiting the emergency department. You were seen and evaluated for nausea, vomiting, diarrhea and abdominal discomfort in the context of . The exact cause of your symptoms is unclear though does not appear to need hospitalization at this time. You were found to be dehydrated. I will prescribe a different antinausea medication. Please follow-up with your media reporter. Return to the emergency department for uncontrolled symptoms, worsening abdominal pain, fevers, inability to tolerate oral intake, vaginal bleeding, or anything else that you are concerned about and feel needs emergency department evaluation. Coding Level of Care Code ED Order To Delivery Supervisor for Juanita Trinidad
[2022-08-16 20:45] VITALS: BP 134/78; PULSE 91; RESP 16; O2SAT 96
[2022-08-16] MEDS: sodium chloride 0.9% 1,000 ML 999 ML IV ×2 (20:55→21:42)
[2022-08-16] MEDS: metoclopramide 5 mg/mL SDV 2 mL 10 MG IVP (20:55)
[2022-08-16 21:00] LABS: Basophils % 0.2 %; Eosinophils % 0.1 %; Hematocrit 37.5 % (37.0-47.0); Hemoglobin 12.2 g/dL (11.5-15.3); Lymphocytes # 0.8 10^3/uL (0.8-4.8); Lymphocytes % 6.8 %; Mean Corpuscular HGB Conc 32.5 g/dL (30.0-36.0); Mean Corpuscular Hemoglobin 28.2 pg (28.0-34.0); Mean Corpuscular Volume 86.6 fl (81-99); Mean Platelet Volume 10.3 fL (7.4-10.4); Monocytes # 0.3 10^3/uL (0.2-0.9); Monocytes % 2.4 %; Neutrophils # 10.89 10^3/uL (1.8-7.7); Neutrophils % 88.7 %; Nucleated Red Blood Cells % 0 %; Platelet Count 254 10^3/cmm (130-400); Red Blood Count 4.33 10^6/uL (4.1-5.3); Red Cell Distribution Width 13.6 % (12.1-15.1); White Blood Count 12.3 10^3/uL (4.0-10.0)
[2022-08-16 21:12] VITALS: BP 134/78; PULSE 103; RESP 18; O2SAT 98
[2022-08-16 21:19] LABS: Alanine Aminotransferase 8 U/L (0-33); Albumin Level 3.5 g/dL (3.5-5.2); Alkaline Phosphatase 103 U/L (35-105); Anion Gap 20.1 (5-19); Aspartate Amino Transferase 12 U/L (0-32); Blood Urea Nitrogen 8 mg/dL (6-20); Calcium 8.8 mg/dL (8.5-10.5); Carbon Dioxide 22 mmol/L (22-29); Chloride 102 mmol/L (98-107); Globulin 3.2 g/dL (1.3-4.6); Glomerular Filtration Rate 145.9 mL/min (90-130); Glucose 93 mg/dL (65-115); Osmolality Calculated 290 mOsm/kg (285-295); Potassium 3.1 mmol/L (3.5-5.1); Sodium 141 mmol/L (136-145); Total Bilirubin 0.3 mg/dL (0.15-1.2); Total Protein 6.7 g/dL (6.6-8.7)
[2022-08-16] MEDS: promethazine 25 mg/mL SDV 1 mL IM (21:39)
[2022-08-16 21:59] LABS: Add Urine Microscopic? YES; Bilirubin Urine Neg (Negative); Blood Urine Trace (Negative); Glucose Urine UA Norm (Normal); Ketones Urine 3+ (Negative); Leukocyte Esterase Urine Negative (Negative); Nitrate Urine Negative (Negative); Protein Urine Neg (Negative); Urine Appearance Clear (CLEAR); Urine Color Yellow (Yellow); Urobilinogen Urine Norm (Negative); pH Urine 6 (5-7)
[2022-08-16 22:00] LABS: Add Urine Culture? Yes; Bacteria Urine 2+ /hpf; RBC Urine 0-4 /hpf (0-2)
[2022-08-16] MEDS: potassium chloride oral liq 20 mEq/15 mL UDC 40 MEQ PO (22:11)
[2022-08-16 23:22] VITALS: BP 109/68; PULSE 103; RESP 16; O2SAT 98
== END 2022-08-16 23:23 | disposition home or self-care (01) ==
PROVIDERS: Emergency Provider Emergency Medicine; PCP Family Medicine
DX: O26.892 Other specified pregnancy related conditions, second trimester (principal); R11.2 Nausea with vomiting, unspecified; R19.7 Diarrhea, unspecified; E86.0 Dehydration; Z3A.27 27 weeks gestation of pregnancy
CPT/HCPCS: 80053; 81001; 85025; 87086; 87210; 96361; 96372; 96374; 99284; J2550; J2765; J7030

== ENCOUNTER 2022-10-17 17:28 | Outpatient (CLI) | payer OTHER, SELFPAY ==
[2022-10-17] VITALS (8 sets, daily range): BP systolic 123–139; BP diastolic 78–85; PULSE 69–75; RESP 17; BMI 41.3
[2022-10-17 18:18] LABS: Basophils % 0.2 %; Eosinophils # 0.1 10^3/uL (0.0-0.8); Eosinophils % 0.7 %; Hematocrit 34.4 % (37.0-47.0); Hemoglobin 11.2 g/dL (11.5-15.3); Lymphocytes # 1.8 10^3/uL (0.8-4.8); Lymphocytes % 22.4 %; Mean Corpuscular HGB Conc 32.6 g/dL (30.0-36.0); Mean Corpuscular Hemoglobin 27.5 pg (28.0-34.0); Mean Corpuscular Volume 84.5 fl (81-99); Mean Platelet Volume 11.1 fL (7.4-10.4); Monocytes # 0.5 10^3/uL (0.2-0.9); Monocytes % 5.7 %; Neutrophils # 5.73 10^3/uL (1.8-7.7); Neutrophils % 69.8 %; Nucleated Red Blood Cells % 0.4 %; Platelet Count 237 10^3/cmm (130-400); Red Blood Count 4.07 10^6/uL (4.1-5.3); Red Cell Distribution Width 15.1 % (12.1-15.1); White Blood Count 8.2 10^3/uL (4.0-10.0)
[2022-10-17 18:32] LABS: Add Urine Microscopic? YES; Bilirubin Urine Neg (Negative); Blood Urine Neg (Negative); Glucose Urine UA Norm (Normal); Ketones Urine Negative (Negative); Leukocyte Esterase Urine 1+ (Negative); Nitrate Urine Negative (Negative); Protein Urine Neg (Negative); Specific Gravity, Urine 1.015 (1.005-1.030); Sulfosalicylic Acid Urine Negative (Negative); Urine Appearance Clear (CLEAR); Urine Color Light yellow (Yellow); Urobilinogen Urine Norm (Negative); pH Urine 8 (5-7)
[2022-10-17 18:35] LABS: Bacteria Urine TRACE /hpf
[2022-10-17 18:36] LABS: Add Urine Culture? No
[2022-10-17 18:51] LABS: Alanine Aminotransferase 12 U/L (0-33); Albumin Level 3.4 g/dL (3.5-5.2); Alkaline Phosphatase 229 U/L (35-105); Anion Gap 16.8 (5-19); Aspartate Amino Transferase 14 U/L (0-32); Blood Urea Nitrogen 4 mg/dL (6-20); Calcium 8.7 mg/dL (8.5-10.5); Carbon Dioxide 25 mmol/L (22-29); Chloride 101 mmol/L (98-107); Globulin 2.6 g/dL (1.3-4.6); Glomerular Filtration Rate 188.7 mL/min (90-130); Glucose 85 mg/dL (65-115); Osmolality Calculated 286 mOsm/kg (285-295); Sodium 140 mmol/L (136-145); Total Bilirubin 0.2 mg/dL (0.15-1.2); Uric Acid 4.3 mg/dL (2.4-5.7)
[2022-10-17 18:53] LABS: Urine Creatinine 34 mg/dL (28-217); Urine Protein Random 7 mg/dL
[2022-10-17 18:55] LABS: UPRO/UCREAT Ratio 0.21 mg/mg CR
[2022-10-17 18:55] LABS: Potassium 2.8 mmol/L (3.5-5.1)
== END 2022-10-17 19:19 | disposition home or self-care (01) ==
LOC: OPOB 17:29 → OBGYN 17:30
PROVIDERS: PCP Family Medicine; Visit Provider Family Medicine
DX: O16.9 Unspecified maternal hypertension, unspecified trimester (principal); Z3A.00 Weeks of gestation of pregnancy not specified
CPT/HCPCS: 36415; 59025; 80053; 81001; 82570; 84156; 84550; 85025; 99211

== ENCOUNTER 2022-10-29 07:24 | Inpatient (IN) | payer OTHER, SELFPAY ==
[2022-10-28] VITALS (18 sets, daily range): BP systolic 136–183; BP diastolic 70–95; PULSE 65–74; TEMP 36.6–36.7; BMI 39.3
[2022-10-28 20:13] LABS: Basophils % 0.2 %; Eosinophils # 0.1 10^3/uL (0.0-0.8); Eosinophils % 0.7 %; Hematocrit 33.1 % (37.0-47.0); Hemoglobin 10.6 g/dL (11.5-15.3); Lymphocytes # 1.6 10^3/uL (0.8-4.8); Mean Corpuscular Hemoglobin 27.9 pg (28.0-34.0); Mean Corpuscular Volume 87.1 fl (81-99); Mean Platelet Volume 11.8 fL (7.4-10.4); Monocytes # 0.5 10^3/uL (0.2-0.9); Monocytes % 5.5 %; Neutrophils # 6.32 10^3/uL (1.8-7.7); Neutrophils % 73.9 %; Nucleated Red Blood Cells # 0.1 /100WBC; Nucleated Red Blood Cells % 0.6 %; Platelet Count 194 10^3/cmm (130-400); Red Cell Distribution Width 15.6 % (12.1-15.1); White Blood Count 8.6 10^3/uL (4.0-10.0)
[2022-10-28 20:26] LABS: Alanine Aminotransferase 11 U/L (0-33); Albumin Level 3.3 g/dL (3.5-5.2); Alkaline Phosphatase 238 U/L (35-105); Anion Gap 16.8 (5-19); Aspartate Amino Transferase 15 U/L (0-32); Blood Urea Nitrogen 5 mg/dL (6-20); Calcium 8.4 mg/dL (8.5-10.5); Carbon Dioxide 22 mmol/L (22-29); Chloride 103 mmol/L (98-107); Globulin 2.5 g/dL (1.3-4.6); Glomerular Filtration Rate 145.9 mL/min (90-130); Glucose 96 mg/dL (65-115); Osmolality Calculated 285 mOsm/kg (285-295); Sodium 139 mmol/L (136-145); Total Bilirubin 0.2 mg/dL (0.15-1.2); Total Protein 5.8 g/dL (6.6-8.7); Uric Acid 5.1 mg/dL (2.4-5.7)
[2022-10-28 20:29] LABS: Add Urine Microscopic? YES; Bilirubin Urine Neg (Negative); Blood Urine 3+ (Negative); Glucose Urine UA Norm (Normal); Ketones Urine Negative (Negative); Leukocyte Esterase Urine 2+ (Negative); Nitrate Urine Negative (Negative); Protein Urine Trace (Negative); Urine Appearance Hazy (CLEAR); Urine Color Yellow (Yellow); Urobilinogen Urine Norm (Negative); pH Urine 7 (5-7)
[2022-10-28 20:32] LABS: Add Urine Culture? Yes; Bacteria Urine 1+ /hpf; Squamous Epithelial Cell Urine 0-4 /hpf (0-5); WBC Urine 40-55 /hpf (0-5)
[2022-10-28] MEDS: labetalol 5 mg/mL SDV 20mL 20 MG IVP (20:34)
[2022-10-28] MEDS: dextrose 5%-lactated ringers 1,000 ML 125 ML IV (20:36)
[2022-10-28] MEDS: ampicillin 2,000 MG in sodium chloride 0.9% (plus) 50 ML 100 MG IV (20:36)
[2022-10-28] MEDS: miSOPROStol 100 mcg tablet 25 MCG VAGINAL (20:38)
[2022-10-28 20:39] LABS: Potassium 2.8 mmol/L (3.5-5.1); Urine Creatinine 118 mg/dL (28-217)
[2022-10-28 20:40] LABS: UPRO/UCREAT Ratio 0.28 mg/mg CR; Urine Protein Random 33 mg/dL
[2022-10-28] MEDS: lidocaine 1% 5 ML in potassium chloride premix 100 ML 16.67 ML IV (22:05)
[2022-10-28] MEDS: labetalol 200 mg Tablet 100 MG PO (23:50)
[2022-10-29] VITALS (154 sets, daily range): BP systolic 122–192; BP diastolic 56–102; PULSE 63–99; RESP 16–17; TEMP 36.6–36.8; O2SAT 89–98
[2022-10-29] MEDS: ampicillin 1,000 MG in sodium chloride 0.9% (plus) 50 ML 100 MG IV ×2 (00:41→05:35)
[2022-10-29] MEDS: miSOPROStol 100 mcg tablet 25 MCG VAGINAL (00:45)
[2022-10-29] MEDS: sodium chlor 0.9% + KCl 40 mEq 40 MEQ/1,000 ML BAG 166.67 MEQ IV (00:45)
[2022-10-29] MEDS: lactated ringers 1,000 ML 999 ML IV ×2 (01:33→03:11)
--- NOTE | 2022-10-29 02:28 | ANES.PREANE2 ---
Pre-Anesthetic Assessment Height/Weight: Height 1.63 m Weight 103.873 kg Temp Pulse BP O2 Del Method 97.9 F 67 139/66 Room Air 10/28/22 22:43 10/29/22 02:25 10/29/22 02:25 10/28/22 19:25 Familial anesthetic complications: None Was Beta Terrell taken within 24 hours: N/A Was Clonidine taken within 24 hours: N/A Social No alcohol and No tobacco Exam alert, oriented x 3, clear to auscultation bilaterally and regular rate & rhythm Airway Submandibular: within normal limits Cervical ROM: within normal limits Mallampati: Class II Dentition: full History/ROS No significant history except as noted and No significant complaints Pulmonary None reported CV/HEM Hypertension (Gestational) and Murmur Urinary Tract Infection Hepatic None reported GI Gastroesophageal Reflux Disease Metabolic Morbid Obesity Musc/skel Lower Back Pain Ankylosing spondylitis Neuropsych Anxiety, Depression and Neuropathy Anesthetic Plan ASA status: 2 Anesthesia: Anesthesia Evaluation and General Other: Epidural Risk of > 500 ml blood loss (7ml/kg in children): No Medications/Allergies Home Medications Medication Instructions Recorded Confirmed Last Taken Type diclofenac sodium 1 % topical gel 4 g topical QID #100 grams 06/24/20 09/05/22 Unknown Rx prednisone 10 mg tablet See Rx Instructions PO DAILY PRN 06/24/20 09/05/22 Unknown Rx joint pain #30 tabs ondansetron HCl 4 mg tablet 4 mg PO Q8H PRN nausea and 05/14/22 09/05/22 Unknown Rx vomiting #20 tabs promethazine 25 mg rectal 25 mg CO Q6H PRN severe vomiting 05/14/22 09/05/22 Unknown Rx suppository #12 ea metoclopramide HCl 10 mg tablet 10 mg PO Q6H PRN nausea and 08/16/22 09/05/22 Unknown Rx (Reglan) vomiting #30 tabs golimumab 50 mg/0.5 mL See Rx Instructions .Route 09/12/22 Unknown Rx subcutaneous pen injector (Simponi) .COMPLEX #0.5 mL Allergies Allergy/AdvReac Type Severity Reaction Status Date / Time No Known Allergies Allergy Verified 10/28/22 19:56 Current Medications Generic Name Dose Route Start Last Admin Trade Name Freq PRN Reason Stop Dose Admin Dextrose/Lactated Ringer's 1,000 mls @ 125 mls/hr 10/28/22 20:00 10/28/22 20:36 Dextrose 5%-Lactated Ringers IV 125 mls/hr .Q8H BERNARDINO Administration Ampicillin Sodium 1,000 mg/ 50 mls @ 100 mls/hr 10/29/22 00:00 10/29/22 00:41 Sodium Chloride IV 100 mls/hr Q4H BERNARDINO Administration Protocol Potassium Chloride/Sodium Chloride 40 meq in 1,000 mls @ 166.667 mls/hr 10/29/22 00:45 10/29/22 00:45 Sodium Chlor 0.9% + Kcl 40 Meq IV 10/29/22 06:44 166.67 mls/hr .Q6H ONE Administration Labetalol HCl 20 mg 10/28/22 20:02 10/28/22 20:34 Labetalol 5 Mg/Ml Sdv 20ml IVP 20 mg PRN PRN Administration HYPERTENSION Protocol Labetalol HCl 100 mg 10/28/22 23:45 10/28/22 23:50 Labetalol 200 Mg Tablet PO 100 mg BID BERNARDINO Administration PFSH Anesthesia Medical History Ankylosing spondylitis Breast feeding status of mother High risk medication use 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 Female Reproductive History : 3 Data Anesthesia 10/28/22 19:35 10/28/22 19:35 Short CBC 10/28/22 Range/Units 19:35 WBC 8.6 (4.0-10.0) 10^3/uL Hgb 10.6 L (11.5-15.3) g/dL Hct 33.1 L (37.0-47.0) % MCV 87.1 (81-99) fl Plt Count 194 (130-400) 10^3/cmm Neut % (Auto) 73.9 % Neut # (Auto) 6.32 (1.8-7.7) 10^3/uL BMP 10/28/22 19:35 Sodium 139 Potassium 2.8 L* Chloride 103 Carbon Dioxide 22 BUN 5 L Creatinine 0.5 Glucose 96 Calcium 8.4 L Liver Function 10/28/22 Range/Units 19:35 Total Bilirubin 0.2 (0.15-1.2) mg/dL AST 15 (0-32) U/L ALT 11 (0-33) U/L Alkaline Phosphatase 238 H (35-105) U/L Albumin 3.3 L (3.5-5.2) g/dL Urine 10/28/22 Range/Units 19:35 Urine Color Yellow (Yellow) Urine Appearance Hazy A (CLEAR) Urine pH 7 (5-7) Ur Specific [place] 1.010 (1.005-1.030) Urine Protein Trace (Negative) Urine Glucose (UA) Norm (Normal) Urine Ketones Negative (Negative) Urine Nitrate Negative (Negative) Urine Bilirubin Neg (Negative) Ur Leukocyte Esterase 2+ H (Negative) Urine RBC 10-15 H (0-2) /hpf Urine WBC 40-55 H (0-5) /hpf Cardiac Studies: No Data to Display
--- NOTE | 2022-10-29 03:05 | ANES.PROC ---
Anesthesia Procedures Procedure/Date: 10/29/22 Epidural: Time Out Performed: Yes Consents Signed: Procedure Consent and NPO Consent Consent: requested by attending/covering physician, from patient, risks and benefits reviewed and patient agrees to proceed Lumbar Level: L2-L3 Epidural position: sitting Epidural procedure: sterile prep of area (betadine), 1% lidocaine to numb the area (3 mLs), neg for paresthesia, test dose given, 1.5% xylocaine 1:200k epi (3 mL/2 mL), 0.2% Ropivacaine bolus ml (5 mLs), placed PCEA, no systemic response, sterile dressing applied, L.U.D. no apparent complications and 0.2% Ropiavacaine @ mls/hr (10 mLs/hr)
[2022-10-29] MEDS: labetalol 5 mg/mL SDV 20mL 20 MG IVP ×2 (03:29→21:31)
[2022-10-29] MEDS: magnesium sulfate premix 4 GM/100 ML PREMIX IV (03:43)
[2022-10-29] MEDS: magnesium sulfate premix 20 GM/500 ML BAG IV ×3 (04:03→22:41)
[2022-10-29] MEDS: ondansetron 2 mg/ML SDV 2 mL 4 MG IVP (05:00)
[2022-10-29] MEDS: metoclopramide 5 mg/mL SDV 2 mL 10 MG IV (07:18)
--- NOTE | 2022-10-29 09:29 | PM.OPHPUD ---
Labor & Delivery H&P Update Date of Procedure: October 29, 2022 Date H&P Performed: 10/28/22 Admission Diagnosis: 27-year-old 3 para 1-0-1-1 at 37 weeks estimated gestational age presenting for induction due to gestational hypertension. Primary indication for procedure: Persistent elevation of blood pressures in a 37-week gestational age female Other information: The patient is a pleasant 27-year-old female who has had a relatively unremarkable until last week. The week prior to admission, she had some elevated blood pressures in the office. She had a preeclamptic profile done at that time which was negative. Her elevated blood pressure also resolved with repeated blood pressure checks. On the day of admission, the patient once again had multiple elevated blood pressures in my office. She also gained 10 pounds and was swelling in her hands feet and to lesser extent her face. As result I elected to induce her since she was already 37 weeks along. Once again her preeclamptic panel came back negative. Related Problem List Diagnoses (1) 37 weeks gestation of : (2) Gestational hypertension: A&P Assessment and plan (1) 37 weeks gestation of : Status: Acute (2) Gestational hypertension: We will proceed with induction. We will start with Cytotec 25 mcg per vagina x1 and adjust based on her response and how her blood pressure does. Status: Resolved
--- NOTE | 2022-10-29 09:45 | PM.DELIVERY ---
Delivery Note: Date of delivery: October 29, 2022 Pre-delivery diagnoses: 27-year-old 3 para 1-0-1-1 at 37 weeks estimated gestational age with gestational hypertension Post-delivery diagnoses: Status post spontaneous vaginal delivery Procedure: Spontaneous vaginal delivery Delivering Physician: Isaiah Norris Estimated blood loss (mL): 50 Pre-Delivery Course: The patient presented to the hospital for induction due to gestational hypertension. She was placed on Cytotec 25 mcg x 2. An amniotomy was performed. An epidural was placed. Pitocin was added. She progressed to complete without difficulty. She did have multiple episodes where she did have severe blood pressures and received labetalol per protocol 2 times. Delivery: DELIVERY: The patient progressed to complete without difficulty. She delivered a male with a weight of 7 pounds 7 ounces with Apgars of 9, 9. The baby was delivered from the JAYDEN position. The baby's mouth and nose were suctioned shortly after delivery and placed on the mother's abdomen. The cord was then clamped and cut. There was a nuchal cord x1 which was easily reduced before delivery of the body.. There was no meconium. The placenta and 3 vessel cord were delivered intact shortly thereafter. The perineum and vaginal vault were carefully examined. No lacerations were noted. Both the mother and the baby were in stable condition. Post-Delivery Status: Good A&P Assessment and plan (1) 37 weeks gestation of : (2) Gestational hypertension: The patient is currently on magnesium, and will remain on magnesium for another 12 hours. Her labs for preeclampsia were negative. Her blood pressure has improved. In all the regard she is doing very well. Coding Level of Care Code Acute Code for Chg Fwd Diagnoses 37 weeks gestation of Z3A.37 Gestational hypertension O13.9
--- NOTE | 2022-10-29 11:58 | PC.NURSE ---
DONALD CATHETER REMOVED AT 0900 FOR PUSHING/DELIVERY. NEW DONALD PLACED AT 0935.
[2022-10-29] MEDS: HYDROcodone-acetaminophen 5-325 mg Tablet PO ×2 (12:32→23:37)
[2022-10-29] MEDS: lanolin oint 7 gm 1 APPLIC TOPICAL (12:32)
[2022-10-29] MEDS: benzocaine-menthol 78 gm Canister 1 SPRAY TOPICAL (12:32)
[2022-10-29] MEDS: ibuprofen 800 mg tablet PO ×2 (15:23→20:45)
--- NOTE | 2022-10-29 17:57 | PC.NURSE ---
ever care performed and gown changed. pt stood at bedside and mesh underwear/pad put on. pt then to OB-8 via wheelchair. pt to bed without difficulty. oriented to room/call light. proud parent pack and feeding log provided and discussed.
[2022-10-29] MEDS: NIFEdipine ER (24 hr) 30 mg Tablet PO ×2 (18:57→20:01)
[2022-10-29] MEDS: escitalopram 10 mg Tablet 5 MG PO (21:31)
[2022-10-29] MEDS: dextrose 5%-lactated ringers 1,000 ML 125 ML IV (21:56)
[2022-10-29 23:04] LABS: Hematocrit 30.8 % (37.0-47.0); Hemoglobin 9.8 g/dL (11.5-15.3); Mean Corpuscular HGB Conc 31.8 g/dL (30.0-36.0); Mean Corpuscular Hemoglobin 27.8 pg (28.0-34.0); Mean Corpuscular Volume 87.3 fl (81-99); Mean Platelet Volume 11.6 fL (7.4-10.4); Platelet Count 191 10^3/cmm (130-400); Red Blood Count 3.53 10^6/uL (4.1-5.3); White Blood Count 10.3 10^3/uL (4.0-10.0)
[2022-10-30] VITALS (28 sets, daily range): BP systolic 127–189; BP diastolic 70–103; PULSE 63–86; RESP 18; TEMP 36.7
[2022-10-30] MEDS: HYDROcodone-acetaminophen 5-325 mg Tablet PO ×2 (06:33→20:33)
[2022-10-30] MEDS: NIFEdipine ER (24 hr) 30 mg Tablet PO ×2 (10:35→12:55)
[2022-10-30] MEDS: ibuprofen 800 mg tablet PO ×2 (10:35→15:01)
[2022-10-30] MEDS: escitalopram 10 mg Tablet 5 MG PO (10:35)
[2022-10-30] MEDS: prenatal vitamin Capsule 1 CAP PO (10:35)
[2022-10-30] MEDS: docusate sodium 100 mg Capsule PO ×2 (10:35→20:33)
--- NOTE | 2022-10-30 12:31 | ANE.PACU2 ---
Inpatient post-anesthesia follow up: Airway intact: Yes Vital signs: Temperature 97.9 F Pulse Rate 73 Respiratory Rate 16 Blood Pressure 148/72 Pulse Oximetry 97 Oxygen Delivery Me thod Room Air Oxygen Flow Rate Fraction of Inspir ed Oxygen Hydration adequate: Yes Nausea and vomiting: No Pain level: 2 Mental status: Baseline
--- NOTE | 2022-10-30 12:50 | PM.OBGYDC ---
Discharge Providers TOBACCO STEMMER Date of Admission: 10/29/22 07:24 Date of Discharge: 10/30/22 Attending Provider at Admission: Isaiah Norris MD Attending Provider at Discharge: Isaiah Norris MD Primary Care Provider: Isaiah Norris MD Diagnoses at Discharge Discharge Diagnosis (1) 37 weeks gestation of : Status: Acute (2) Gestational hypertension: Status: Acute (3) Hypokalemia: Status: Acute Reason for Visit Reason for Visit: induction Hospital Course Hospital Course The patient presented to the hospital for induction due to gestational hypertension. Was placed on Cytotec 25 mg x 2. An epidural was received. An amniotomy was performed. Low-dose Pitocin was added. She had several elevated blood pressures during the night which required labetalol to treat. She was placed on magnesium and stayed on magnesium for 22 hours postdelivery. The delivery was unremarkable. Her course was remarkable for having a couple of severe blood pressure readings. She was placed on Procardia XL. She was originally given 30 mg, then was later given 30 mg as well. The day after delivery, her blood pressures were still mildly elevated but much improved. Information Peripartum Data: Infant Delivery Method: Vaginal Physical Exam Narrative: The patient is alert. She appears comfortable. Her heart has a regular rate and rhythm with no murmurs appreciated. Lungs are clear to auscultation bilaterally. Her fundus is firm and below the umbilicus. 1+ edema is noted in her extremities bilaterally Urinary Catheter Management: [place]: Cath Placed During This Visit: yes, but has since been removed by the nurse Reason for Continuing Indwelling Catheter: Decision to DC Catheter Urinary Catheter Date of Insertion: 10/29/22 Urinary Catheter Time of Insertion: 09:35 Date Urinary Catheter Removed: 10/30/22 Time Urinary Catheter Discontinued: 06:58 Discharge Data Studies Completed and Pending Laboratory Results WBC 10.3 10^3/uL (4.0-10.0) H 10/29/22 22:50 RBC 3.53 10^6/uL (4.1-5.3) L 10/29/22 22:50 Hgb 9.8 g/dL (11.5-15.3) L 10/29/22 22:50 Hct 30.8 % (37.0-47.0) L 10/29/22 22:50 MCV 87.3 fl (81-99) 10/29/22 22:50 MCH 27.8 pg (28.0-34.0) L 10/29/22 22:50 MCHC 31.8 g/dL (30.0-36.0) 10/29/22 22:50 RDW 16.0 % (12.1-15.1) H 10/29/22 22:50 Plt Count 191 10^3/cmm (130-400) 10/29/22 22:50 MPV 11.6 fL (7.4-10.4) H 10/29/22 22:50 Neut % (Auto) 73.9 % 10/28/22 19:35 Lymph % (Auto) 19.0 % 10/28/22 19:35 [place] % (Auto) 5.5 % 10/28/22 19:35 Eos % (Auto) 0.7 % 10/28/22 19:35 Baso % (Auto) 0.2 % 10/28/22 19:35 Neut # (Auto) 6.32 10^3/uL (1.8-7.7) 10/28/22 19:35 Lymph # (Auto) 1.6 10^3/uL (0.8-4.8) 10/28/22 19:35 [place] # (Auto) 0.5 10^3/uL (0.2-0.9) 10/28/22 19:35 Eos # (Auto) 0.1 10^3/uL (0.0-0.8) 10/28/22 19:35 Baso # (Auto) 0.0 10^3/uL (0.0-0.1) 10/28/22 19:35 Nucleated RBC % (auto) 0.6 % 10/28/22 19:35 Nucleated RBCs # 0.1 /100WBC 10/28/22 19:35 Sodium 139 mmol/L (136-145) 10/28/22 19:35 Potassium 2.8 mmol/L (3.5-5.1) L* 10/28/22 19:35 Chloride 103 mmol/L (98-107) 10/28/22 19:35 Carbon Dioxide 22 mmol/L (22-29) 10/28/22 19:35 Anion Gap 16.8 (5-19) 10/28/22 19:35 BUN 5 mg/dL (6-20) L 10/28/22 19:35 Creatinine 0.5 mg/dL (0.5-0.9) 10/28/22 19:35 GFR Calculation 145.9 mL/min (90-130) H 10/28/22 19:35 Glucose 96 mg/dL (65-115) 10/28/22 19:35 Calculated Osmolality 285 mOsm/kg (285-295) 10/28/22 19:35 Uric Acid 5.1 mg/dL (2.4-5.7) 10/28/22 19:35 Calcium 8.4 mg/dL (8.5-10.5) L 10/28/22 19:35 Total Bilirubin 0.2 mg/dL (0.15-1.2) 10/28/22 19:35 AST 15 U/L (0-32) 10/28/22 19:35 ALT 11 U/L (0-33) 10/28/22 19:35 Alkaline Phosphatase 238 U/L (35-105) H 10/28/22 19:35 Total Protein 5.8 g/dL (6.6-8.7) L 10/28/22 19:35 Albumin 3.3 g/dL (3.5-5.2) L 10/28/22 19:35 Globulin 2.5 g/dL (1.3-4.6) 10/28/22 19:35 Urine Color Yellow (Yellow) 10/28/22 19:35 Urine Appearance Hazy (CLEAR) A 10/28/22 19:35 Urine pH 7 (5-7) 10/28/22 19:35 Ur Specific [place] 1.010 (1.005-1.030) 10/28/22 19:35 Urine Protein Trace (Negative) 10/28/22 19:35 Urine Glucose (UA) Norm (Normal) 10/28/22 19:35 Urine Ketones Negative (Negative) 10/28/22 19:35 Urine Blood 3+ (Negative) H 10/28/22 19:35 Urine Nitrate Negative (Negative) 10/28/22 19:35 Urine Bilirubin Neg (Negative) 10/28/22 19:35 Urine Urobilinogen Norm mg/dL (Negative) 10/28/22 19:35 Ur Leukocyte Esterase 2+ (Negative) H 10/28/22 19:35 Urine RBC 10-15 /hpf (0-2) H 10/28/22 19:35 Urine WBC 40-55 /hpf (0-5) H 10/28/22 19:35 Ur Squamous Epith Cells 0-4 /hpf (0-5) H 10/28/22 19:35 Amorphous Sediment Not Reportable 10/28/22 19:35 Urine Bacteria 1+ /hpf (NONE) H 10/28/22 19:35 Urine Yeast 2+ /hpf H 10/28/22 19:35 U Random Total Protein 33 mg/dL 10/28/22 19:35 Urine Creatinine 118 mg/dL (28-217) 10/28/22 19:35 Protein/Creatinin Ratio 0.28 mg/mg CR 10/28/22 19:35 Vitals Last Vital Signs Temp 97.9 F 10/29/22 19:37 Pulse 77 10/30/22 12:39 Resp 16 10/29/22 18:30 BP 150/77 10/30/22 12:39 Pulse Ox 97 10/29/22 20:48 O2 Del Method Room Air 10/29/22 20:48 Discharge Plan Discharge Patient Disposition: Home Condition: Stable Prescriptions: New hydrocodone-acetaminophen 5-325 mg Tablet 1 tab PO Q6H PRN (Reason: Moderate To Severe Pain) Qty: 10 0RF Procardia XL 60 mg tablet extended release 24hr 60 mg PO DAILY Qty: 30 0RF Continued escitalopram oxalate 5 mg tablet 5 mg PO DAILY potassium chloride 20 mEq Tablet Extended Release 20 meq PO BID 1 tab PO DAILY Discontinued potassium chloride 10 mEq Tablet Extended Release 10 meq PO BID omeprazole 20 mg 20 mg PO DAILY Discharge Orders: Discharge Order (Routine); Ordered 10/30/22 Ordered By: Isaiah Norris Referrals: Isaiah Norris MD [Primary Care Provider] - 11/02/22 7:40 am Discharge Diet: Usual diet Discharge Activity: Limit activity as instructed Patient Instructions: Opioid Safety Discharge Attestations TOBACCO STEMMER Time Spent in Discharge Care*: greater than 30 min Coding Level of Care Code Acute Code for Chg Fwd Diagnoses 37 weeks gestation of Z3A.37 Gestational hypertension O13.9 Hypokalemia E87.6
[2022-10-30 15:30] LABS: Anion Gap 11.9 (5-19); Blood Urea Nitrogen 3 mg/dL (6-20); Calcium 7.4 mg/dL (8.5-10.5); Carbon Dioxide 26 mmol/L (22-29); Chloride 103 mmol/L (98-107); Glomerular Filtration Rate 145.9 mL/min (90-130); Glucose 96 mg/dL (65-115); Osmolality Calculated 282 mOsm/kg (285-295); Sodium 138 mmol/L (136-145)
[2022-10-30 15:37] LABS: Potassium 2.9 mmol/L (3.5-5.1)
[2022-10-30] MEDS: labetalol 5 mg/mL SDV 20mL 20 MG IVP (16:24)
[2022-10-31] VITALS (9 sets, daily range): BP systolic 122–169; BP diastolic 61–89; PULSE 73–87; RESP 15; TEMP 35.8–36.4
[2022-10-31] MEDS: HYDROcodone-acetaminophen 5-325 mg Tablet PO (02:21)
[2022-10-31] MEDS: docusate sodium 100 mg Capsule PO (08:33)
[2022-10-31] MEDS: prenatal vitamin Capsule 1 CAP PO (08:33)
[2022-10-31] MEDS: NIFEdipine ER (24 hr) 30 mg Tablet PO (08:33)
== END 2022-10-31 09:41 | disposition home or self-care (01) | DRG 807 ==
LOC: OPOB 07:24 → OBGYN 07:24
PROVIDERS: Admitting Provider Family Medicine; PCP Family Medicine; Visit Provider Family Medicine
DX: O13.4 Gestational [pregnancy-induced] hypertension without significant proteinuria, complicating childbirth (principal); Z37.0 Single live birth; O69.2XX0 Labor and delivery complicated by other cord entanglement, with compression, not applicable or unspecified; Z3A.37 37 weeks gestation of pregnancy; O75.89 Other specified complications of labor and delivery; E87.6 Hypokalemia
CPT/HCPCS: 36415; 51702; 59025; 59409; 80048; 80053; 81001; 82570; 84156; 84550; 85025; 85027; 96374; 96376; 98960; 99211; J0290; J2405; J2765; J2795; J3475; J3480; J3490; J7040; J7120; J7121

== ENCOUNTER 2022-11-03 19:34 | Emergency (ER) | payer OTHER, SELFPAY ==
[2022-11-03 19:42] VITALS: BMI 33.6
[2022-11-03 19:46] VITALS: BP 150/86; PULSE 107; RESP 16; TEMP 36.8; O2SAT 97
--- NOTE | 2022-11-03 20:10 | W.ED.GENADLT ---
HPI - General Adult General: Chief complaint: General Medical Stated complaint: depression Time Seen by Provider: 11/03/22 20:10 History of Present Illness: Ms. Ayala is a 27-year-old lady day 5 from induced vaginal delivery with complication of preeclampsia presenting to the emergency department for concern about high blood pressure and associated symptoms. She was discharged on Procardia XL which she has been taking. She notes today having increased headaches, body aches, abdominal pain, generalized malaise. Intensity symptoms is moderate. Course has persisted. No other specific changes in health, exacerbating, or alleviating factors identified. 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 Physical Exam Const: COMMON NORMALS: patient oriented x3 and alert GENERAL APPEARANCE: cooperative and well developed HENMT: COMMON NORMALS: normocephalic and atraumatic HEAD & SCALP: normocephalic and atraumatic THROAT: posterior oropharynx normal Eye: COMMON NORMALS: conjunctivae normal CONJUNCTIVA: Yes conjunctivae normal SCLERA: sclerae normal Neck/C-Spine: COMMON NORMALS: supple GENERAL: Yes trachea midline Resp: COMMON NORMALS: normal respiratory effort and clear to auscultation bilaterally EFFORT & INSPECTION: Yes able to speak in complete sentences AUSCULTATION: clear to auscultation bilaterally Cardio: COMMON NORMALS: regular rate and regular rhythm RATE: regular rate RHYTHM: regular rhythm GI: COMMON NORMALS: Soft to palpation PALPATION: Yes Soft to palpation and No Tenderness to palpation present (GI) Extremity: GENERAL: Yes normal exam except as noted and No edema Neuro: COMMON NORMALS: patient oriented x3, CN's II-XII intact bilaterally, moves all extremities, no focal motor deficits and no sensory deficits noted SENSORIUM/ORIENTATION: Yes alert and No Orientation impaired Psych: COMMON NORMALS: mental status grossly normal and Normal thought process present THOUGHT PROCESS: Normal thought process present Course Vital Signs: Vital signs: Vital Signs Temperature 98.3 F 11/03/22 22:21 Pulse Rate 84 11/03/22 22:21 Respiratory Rate 16 11/03/22 22:21 Blood Pressure 134/82 11/03/22 22:21 Pulse Oximetry 98 11/03/22 22:21 Oxygen Delivery Me thod Room Air 11/03/22 19:46 MDM - General Adult Medical Decision Making 27-year-old lady with history of preeclampsia 5 days post reduced vaginal delivery on Procardia presenting with concern of her high blood pressure. Exam as above. Patient is nontoxic. Significantly complaint incorrectly listed as depression, no depression reported. Labs with mild leukocytosis which is likely normal in current state. Normal hemoglobin and platelet count. Metabolic panel with mild hypokalemia, renal function is preserved. No elevation in liver enzymes with the exception of alk phos which is actually minimally elevated and improved from prior. No protein urine. No indication for imaging. Patient treated with labetalol and potassium replenishment with sustained improvement in blood pressure. Discussed with Guilherme Zepeda on-call The results of ED evaluation were discussed with the patient including prescriptions and/or symptomatic cares (if applicable) including appropriate and responsible use, followup plan, and return precautions. The patient verbalized understanding and felt safe for discharge. Medical Records I reviewed the patient's medical records. Lab Data I reviewed the patient's lab results. 11/03/22 20:26 11/03/22 20:26 Laboratory Results WBC 12.5 10^3/uL (4.0-10.0) H 11/03/22 20:26 RBC 4.86 10^6/uL (4.1-5.3) 11/03/22 20: Hgb 13.4 g/dL (11.5-15.3) 11/03/22 20: Hct 41.8 % (37.0-47.0) 11/03/22 20: MCV 86.0 fl (81-99) 11/03/22 20: MCH 27.6 pg (28.0-34.0) L 11/03/22: MCHC 32.1 g/dL (30.0-36.0) 11/03/22 20: RDW 15.6 % (12.1-15.1) H 11/03/22 20: Plt Count 337 10^3/cmm (130-400) 11/03/22: MPV 10.4 fL (7.4-10.4) 11/03/22: Neut % (Auto) 83.3 % 11/03/22 20: Lymph % (Auto) 10.2 % 11/03/22: [place] % (Auto) 4.8 % 11/03/22 20: Eos % (Auto) 0.6 % 11/03/22 20: Baso % (Auto) 0.5 % 11/03/22: Neut # (Auto) 10.42 10^3/uL (1.8-7.7) H 11/03/22: Lymph # (Auto) 1.3 10^3/uL (0.8-4.8) 11/03/22 20: [place] # (Auto) 0.6 10^3/uL (0.2-0.9) 11/03/22 20: Eos # (Auto) 0.1 10^3/uL (0.0-0.8) 11/03/22: Baso # (Auto) 0.1 10^3/uL (0.0-0.1) 11/03/22: Nucleated RBC % (auto) 0 % 11/03/22: Nucleated RBCs # 0.0 /100WBC 11/03/22 20: Sodium 139 mmol/L (136-145) 11/03/22 20: Potassium 3.2 mmol/L (3.5-5.1) L 11/03/22 20:26 Chloride 101 mmol/L (98-107) 11/03/22 20:26 Carbon Dioxide 24 mmol/L (22-29) 11/03/22 20:26 Anion Gap 17.2 (5-19) 11/03/22 20:26 BUN 12 mg/dL (6-20) 11/03/22 20: Creatinine 0.6 mg/dL (0.5-0.9) 11/03/22 20: GFR Calculation 118.2 mL/min (90-130) 11/03/22 20:26 Glucose 106 mg/dL (65-115) 11/03/22 20: Calculated Osmolality 288 mOsm/kg (285-295) 11/03/22 20: Calcium 9.0 mg/dL (8.5-10.5) 11/03/22 20: Magnesium 2.0 mg/dL (1.7-2.3) 11/03/22 20: Total Bilirubin 0.5 mg/dL (0.15-1.2) 11/03/22 20:26 AST 19 U/L (0-32) 11/03/22 20:26 ALT 14 U/L (0-33) 11/03/22 20: Alkaline Phosphatase 169 U/L (35-105) H 11/03/22 20:26 Total Protein 7.2 g/dL (6.6-8.7) 11/03/22 20: Albumin 4.1 g/dL (3.5-5.2) 11/03/22 20: Globulin 3.1 g/dL (1.3-4.6) 11/03/22 20:26 TSH 0.82 uIU/mL (0.27-4.20) 11/03/22 20:26 Urine Color Yellow (Yellow) 11/03/22 21:04 Urine Appearance Cloudy (CLEAR) A 11/03/22 21:04 Urine pH 8 (5-7) H 11/03/22 21:04 Ur Specific [place] 1.015 (1.005-1.030) 11/03/22 21:04 Urine Protein Trace (Negative) 11/03/22 21: Urine Glucose (UA) Norm (Normal) 11/03/22 21:04 Urine Ketones 1+ (Negative) H 11/03/22 21:04 Urine Blood 3+ (Negative) H 11/03/22 21:04 Urine Nitrate Negative (Negative) 11/03/22 21:04 Urine Bilirubin Neg (Negative) 11/03/22 21:04 Prot Sulfosalicylic Acd Negative (Negative) 11/03/22 21:04 Urine Urobilinogen Norm mg/dL (Negative) 11/03/22 21:04 Ur Leukocyte Esterase 2+ (Negative) H 11/03/22 21:04 Urine RBC 10-15 /hpf (0-2) H 11/03/22 21:04 Urine WBC 40-55 /hpf (0-5) H 11/03/22 21:04 Ur Squamous Epith Cells 0-4 /hpf (0-5) H 11/03/22 21:04 Amorphous Sediment Not Reportable 11/03/22 21:04 Urine Bacteria Tr /hpf (NONE) 11/03/22 21:04 Urine Mucus 2+ /hpf 11/03/22 21:04 Discharge Plan Discharge Patient Disposition: Home Clinical Impression: Hypertension in , condition, Headache Condition: Stable Prescriptions: No Action escitalopram oxalate 5 mg tablet 5 mg PO DAILY potassium chloride 20 mEq Tablet Extended Release 20 meq PO BID 1 tab PO DAILY hydrocodone-acetaminophen 5-325 mg Tablet 1 tab PO Q6H PRN (Reason: Moderate To Severe Pain) Qty: 10 0RF Procardia XL 60 mg tablet extended release 24hr 60 mg PO DAILY Qty: 30 0RF Discharge Orders: Discharge ED (Routine); Ordered 11/03/22 Ordered By: Tristen Boateng Referrals: Isaiah Norris MD [Primary Care Provider] - Discharge Diet: As Directed Discharge Activity: Limit activity as instructed Patient Instructions: Acute Headache (ED), Hypertension During (ED) Activity Restrictions/Additional Instructions: Thank you for visiting the emergency department. You were seen about a for high blood pressure with recent . After ED evaluation and in discussion with other providers I believe that continued outpatient management with your current medication regimen is appropriate. Please follow all previously given discharge instructions. 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 Return to the emergency department for anything that you are concerned about and feel needs emergency department evaluation. 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
[2022-11-03 20:31] LABS: Basophils # 0.1 10^3/uL (0.0-0.1); Basophils % 0.5 %; Eosinophils # 0.1 10^3/uL (0.0-0.8); Eosinophils % 0.6 %; Hematocrit 41.8 % (37.0-47.0); Hemoglobin 13.4 g/dL (11.5-15.3); Lymphocytes # 1.3 10^3/uL (0.8-4.8); Lymphocytes % 10.2 %; Mean Corpuscular HGB Conc 32.1 g/dL (30.0-36.0); Mean Corpuscular Hemoglobin 27.6 pg (28.0-34.0); Mean Platelet Volume 10.4 fL (7.4-10.4); Monocytes # 0.6 10^3/uL (0.2-0.9); Monocytes % 4.8 %; Neutrophils # 10.42 10^3/uL (1.8-7.7); Neutrophils % 83.3 %; Nucleated Red Blood Cells % 0 %; Platelet Count 337 10^3/cmm (130-400); Red Blood Count 4.86 10^6/uL (4.1-5.3); Red Cell Distribution Width 15.6 % (12.1-15.1); White Blood Count 12.5 10^3/uL (4.0-10.0)
[2022-11-03] MEDS: labetalol 5 mg/mL SDV 20mL 20 MG IVP (20:31)
[2022-11-03 21:00] LABS: Alanine Aminotransferase 14 U/L (0-33); Albumin Level 4.1 g/dL (3.5-5.2); Alkaline Phosphatase 169 U/L (35-105); Anion Gap 17.2 (5-19); Aspartate Amino Transferase 19 U/L (0-32); Blood Urea Nitrogen 12 mg/dL (6-20); Carbon Dioxide 24 mmol/L (22-29); Chloride 101 mmol/L (98-107); Creatinine Clr Calc Pharmacy 149.3473; Globulin 3.1 g/dL (1.3-4.6); Glomerular Filtration Rate 118.2 mL/min (90-130); Glucose 106 mg/dL (65-115); Osmolality Calculated 288 mOsm/kg (285-295); Potassium 3.2 mmol/L (3.5-5.1); Sodium 139 mmol/L (136-145); Thyroid Stimulating Hormone 0.82 uIU/mL (0.27-4.20); Total Bilirubin 0.5 mg/dL (0.15-1.2); Total Protein 7.2 g/dL (6.6-8.7)
[2022-11-03 21:04] VITALS: BP 139/75; PULSE 85; RESP 16; O2SAT 96
[2022-11-03 21:19] LABS: Urine Appearance Cloudy (CLEAR); Urine Color Yellow (Yellow)
[2022-11-03 21:20] LABS: Add Urine Microscopic? YES; Bilirubin Urine Neg (Negative); Blood Urine 3+ (Negative); Glucose Urine UA Norm (Normal); Ketones Urine 1+ (Negative); Leukocyte Esterase Urine 2+ (Negative); Nitrate Urine Negative (Negative); Protein Urine Trace (Negative); Specific Gravity, Urine 1.015 (1.005-1.030); Sulfosalicylic Acid Urine Negative (Negative); Urobilinogen Urine Norm (Negative); WBC Urine 40-55 /hpf (0-5); pH Urine 8 (5-7)
[2022-11-03 21:21] LABS: Add Urine Culture? Yes; Bacteria Urine TR /hpf; Mucus Urine 2+ /hpf; Squamous Epithelial Cell Urine 0-4 /hpf (0-5)
[2022-11-03] MEDS: potassium chloride oral liq 20 mEq/15 mL UDC 40 MEQ PO (21:27)
[2022-11-03 21:39] VITALS: BP 133/76; PULSE 94; RESP 16; O2SAT 97
[2022-11-03 22:04] VITALS: BP 134/79; PULSE 87; RESP 16; O2SAT 98
[2022-11-03 22:20] VITALS: BP 134/82; PULSE 84; RESP 16; O2SAT 98
[2022-11-03 22:21] VITALS: BP 134/82; PULSE 84; RESP 16; TEMP 36.8; O2SAT 98
== END 2022-11-03 22:22 | disposition home or self-care (01) ==
PROVIDERS: Emergency Provider Emergency Medicine; PCP Family Medicine
DX: O13.5 Gestational [pregnancy-induced] hypertension without significant proteinuria, complicating the puerperium (principal); R51.9 Headache, unspecified
CPT/HCPCS: 80053; 81001; 83735; 84443; 85025; 87086; 96374; 99284; J3490

== ENCOUNTER → 2022-11-29 11:22 | Outpatient (BNVA) | payer OTHER, SELFPAY | PROVIDERS: PCP Family Medicine; Visit Provider Internal Medicine Rheumatology | DX: M45.9 Ankylosing spondylitis of unspecified sites in spine (principal); Z79.899 Other long term (current) drug therapy; Z71.89 Other specified counseling; Z15.89 Genetic susceptibility to other disease | CPT/HCPCS: 99214 ==

== ENCOUNTER → 2023-01-06 11:50 | Outpatient (BNVA) | payer OTHER, SELFPAY | PROVIDERS: PCP Family Medicine; Visit Provider Nurse Practitioner Family | DX: E87.6 Hypokalemia (principal); E66.9 Obesity, unspecified | CPT/HCPCS: 80053; 80061; 84443 ==

== ENCOUNTER → 2023-03-07 11:14 | Outpatient (BNVA) | payer OTHER, SELFPAY | PROVIDERS: PCP Family Medicine; Visit Provider Internal Medicine Rheumatology | DX: Z79.899 Other long term (current) drug therapy (principal); M45.9 Ankylosing spondylitis of unspecified sites in spine; Z15.89 Genetic susceptibility to other disease; Z71.89 Other specified counseling | CPT/HCPCS: 99214 ==